=== PATIENT | female | born 1995 | race Caucasian/White ===

== ENCOUNTER → 2019-11-22 | Outpatient (CLI) | payer OTHER | END | disposition home or self-care (01) | LOC: LABWHC1 13:11 | PROVIDERS: ATTEND Internal Medicine | DX: Z20.828 Contact with and (suspected) exposure to other viral communicable diseases (principal) | CPT/HCPCS: U0003; C9803 ==

== ENCOUNTER → 2020-03-25 | Outpatient (CLI) | payer OTHER ==
--- NOTE | 2020-03-26 10:35 | ECHOF ---
Referral Reason:R55 Syncope MEASUREMENTS -------- HEIGHT: 162.6 cm WEIGHT: 47.2 kg BP: RVIDd: 2.8 cm (< 3.3) IVSd: 0.7 cm (0.6 - 1.1) LVIDd: 4.1 cm (3.9 - 5.3) LVPWd: 0.7 cm (0.6 - 1.1) IVSs: 1.1 cm LVIDs: 2.6 cm LVPWs: 1.4 cm LAESV Index (A-L): 20.34 ml/m Ao Diam: 2.8 cm (2.0 - 3.7) AV Cusp: 2.2 cm (1.5 - 2.6) MV EXCURSION: 25.293 mm (> 18.000) MV EF SLOPE: 112 mm/s (70 - 150) EPSS: 0.4 cm MV E Liang: 0.79 m/s MV DecT: 199 ms MV A Liang: 0.59 m/s MV E/A Ratio: 1.34 RAP: 5.00 mmHg RVSP: 20.74 mmHg FINDINGS -------- Sinus rhythm. This was a technically adequate study. The left ventricular size is normal. Left ventricular wall thickness is normal. Overall left vent ricular systolic function is normal with, an EF between 55 - 60 %. The diastolic filling pattern is normal for the age of the patient 6.46. The right ventricle is normal in size. Normal LA size by volume 22+/-6 ml/m2. The right atrial size is normal. Interatrial and interventricular septum intact. The aortic valve is trileaflet and appears structurally normal. There is no evidence of aortic regu rgitation. There is no evidence of aortic stenosis. Mitral valve is thickened with myxomatous degeneration. The mitral valve leaflets are mildly thicke roxana. Mild mitral regurgitation is present. Mild tricuspid regurgitation present. There is no evidence of pulmonary hypertension. The right v entricular systolic pressure, as measured by Doppler, is 20.74mmHg. There is no pulmonic regurgitation present. The aortic root size is normal. Normal inferior vena cava with normal inspiratory collapse consistent with estimated right atrial pre ssure of 5 mmHg. There is no pericardial effusion. CONCLUSIONS -------- 1. The left ventricular size is normal. 2. Left ventricular wall thickness is normal. 3. Overall left ventricular systolic function is normal with, an EF between 55 - 60 %. 4. The diastolic filling pattern is normal for the age of the patient 6.46 5. The aortic valve is trileaflet and appears structurally normal. 6. There is no evidence of aortic regurgitation. 7. There is no evidence of aortic stenosis. 8. Mitral valve is thickened with myxomatous degeneration. 9. The mitral valve leaflets are mildly thickened. 10. Mild mitral regurgitation is present. 11. Mild tricuspid regurgitation present. INSTRUCTIONAL SUPPORT ASSISTANT: Priscilla Farr RDCS
== END | disposition home or self-care (01) ==
LOC: RADECHMAIN 14:39
DX: I08.1 Rheumatic disorders of both mitral and tricuspid valves (principal)
CPT/HCPCS: 93306

== ENCOUNTER 2020-04-07 10:43 | Day surgery (SDC) | payer OTHER ==
[2020-04-02 09:05] VITALS: BMI 17.8
[~2020-04-07 10:43] MED LIST: SODIUM CHLORIDE 0.9% 1,000 ML IV SCH
[2020-04-07 11:45] VITALS: PULSE 92; RESP 16; TEMP 98.8
[2020-04-07 14:53] VITALS: BP 120/67
--- NOTE | 2020-04-08 19:01 | P.EPPROC ---
- EP Procedure Note Electrophysiology Procedure Note: Diagnosis Recurrent syncope as well as near syncope Twelve-lead ECG shows sinus rhythm normal FL narrow QRS No delta waves, no epsilon waves, no ST segment abnormalities in the precordial leads, normal QT interval, no evidence for Brugada morphology No QRS fractionation Tilt table test per protocol Baseline blood pressure 114/58 mmHg, Baseline heart rate 66 beats a minute Patient was tilted upright at an angle of 70 per protocol for the next 40 minutes Blood pressure remained stable. However there was an increase in her heart rate into the low 100s almost immediately Thereafter heart rates remained between 110-120 beats a minute She complained of lightheadedness, feeling of warmth, feeling shortness of breath Periods of nausea and waves of warmth Periods of leg weakness No syncopal spell When she was laid supine her blood pressure remained stable. Her heart rate came down to 74 beats a minute Impression Normal twelve-lead ECG Orthostatic intolerance/postural tachycardia syndrome No evidence for secondary neurocardiogenic syncope
== END 2020-04-07 14:48 | disposition home or self-care (01) ==
LOC: CATHEP 10:43
PROVIDERS: ATTEND Internal Medicine Clinical Cardiac Electrophysiology
DX: I49.8 Other specified cardiac arrhythmias (principal)
CPT/HCPCS: 81025; 93660